=== PATIENT | female | born 1985 | race Caucasian/White ===

== ENCOUNTER 2016-09-13 21:33 | Emergency (ER) | payer OTHER ==
[~2016-09-13 21:33] MED LIST: DEPO-PROVE150 MG/11 IM; DOCUSATE SODIU100 M3 PO; HYDROMORPHONE HC2 M1 PO; IBUPROFEN800 M1 PO; IBUPROFEN800 MG PO; MOTRIN800 MG PO; NATURAL IRON65 MG PO; PERCOCET 325 MG1 TA2 PO; PERCOCET 5-3251 EACH PO; TOPIRAMATE25 MG PO; VITAFOL-ONE1 SGL PO; ZOFRAN4 M1 PO
--- NOTE | 2016-09-13 23:28 | ED MVC/FALL/TRAUMA COMPLAINT ---
History of Present Illness General Chief Complaint: Fall Stated Complaint: "BACK/HEAD PAIN S/P FALL DOWNSTAIRS -LOC" Source: patient, old records, friend Exam Limitations: no limitations Vital Signs & Intake/Output Vital Signs & Intake/Output Vital Signs Date Time Temp Pulse Resp B/P B/P Pulse O2 O2 Flow FiO2 Mean Ox Delivery Rate 09/13 2332 97.9 88 18 101/55 100 Room Air 09/13 2257 97.9 09/13 2146 97.9 88 18 114/71 98 Room Air Allergies Coded Allergies: NO KNOWN ALLERGIES (09/23/14) Reconcile Medications Docusate Sodium 100 MG CAPSULE 100 MG PO BID stool softener Hydromorphone HCl 2 MG TABLET 4 MG PO Q4 HRS NEEDED PRN PAIN SCALE 4-6 ( MODERATE) Ibuprofen 800 MG TABLET 800 MG PO Q6P PRN PAIN Oxycodone HCl/Acetaminophen (Percocet 5-325 MG Tablet) 1 EACH TABLET 1 TAB PO PRN PAIN (Reported) Oxycodone HCl/Acetaminophen (Percocet 5-325 MG Tablet) 5 MG-325 MG TABLET 1 TAB PO BID PRN pain Triage Note: TRIAGE; PT TO ED S/P LOST BALANCE AND FELL DOWN FLIGHT OF STAIRS PER PT. FRIEND WITH HER STATES SHE HAD +LOC. PT STATES SHE FEELS NAUSEOUS AT THIS TIME. C/O LT RIB PAIN AND HEAD PAIN. Triage Nurses Notes Reviewed? yes Onset: Abrupt Duration: hour(s): (2), constant Timing: recent history Severity: moderate Severity Numbers: 9 Injuries/Fall Location: head, chest Method of Injury: fall Loss of Consciousness: brief (seconds) No Modifying Factors: none Associated Symptoms: denies : No Patient currently breastfeeds: No HPI: 30 year old female presents to the ER for evaluation with her friend after she states she lost balance going up a flight of stairs. According to her friend she blacked out for a few seconds. On arrival she states she's been feeling nauseous associated generalized headache, and left-sided chest and neck pain. She did not take anything prior to arrival for her symptoms. Her friend denies change in her mental status. She denies vomiting she denies any upper or lower shimmy injury numbness or tingling. (OMAR RICHARDSON,OLIVER) Past History Travel History Traveled to [place] past 21 day No Medical History Any Pertinent Medical History? see below for history Neurological: migraine EENT: NONE Cardiovascular: syncope Respiratory: NONE Gastrointestinal: NONE Hepatic: NONE Renal: NONE Musculoskeletal: NONE Psychiatric: anxiety, POST DEPRESSION Endocrine: NONE Blood Disorders: anemia Cancer(s): NONE SCRAP COLLECTOR/Reproductive: NONE History of MRSA: No History of VRE: No History of CDIFF: No Surgical History Surgical History: , hysterectomy Psychosocial History Who do you live with Friend Services at Home None What is your primary language Welsh Tobacco Use: Never used Family History Hx Contributory? No (OLIVER PETTIT) Review of Systems Review of Systems Constitutional: Reports: see HPI. All Other Systems: Reviewed and Negative Comments Review of systems: See HPI, All other systems negative. Constitutional, no chills no fever, no malaise HEENT: No visual changes no sore throat no congestion Cardiovascular: No chest pain , no palpitation Skin: no rashes, no change in skin Respiratory: No dyspnea no cough no sputum GI: No nausea no vomiting, no diarrhea, : No dysuria No hematuria, no frequency, no discharge Muscle skeletal: No joint pain, no joint swelling, back pain, neck pain, Neurologic: No numbness no confusion, headache Psych: No stress Heme/endocrine: No bruising Immunology: No lymphadenopathy (OLIVER PETTIT) Physical Exam Physical Exam General Appearance: well developed/nourished, alert, awake Comments: Well-developed well-nourished person in no acute distress HEENT: Normal EENT exam; PERRL, EOMI, no nystagmus. HEAD is atraumatic. moist mucous membranes. Neck: Supple, no midline tenderness bilateral paracervical muscle tenderness to palpation normal range of motion without pain or tenderness Back: Nontender, no CVA tenderness. Full range of motion Cardiovascular: Regular rate and rhythms no murmurs rubs Respiratory: Chest nontender.no ecchymosis or signs of trauma There were no bony deformities, no asymmetry. No respiratory distress. Patient speaking in full complete sentences. Breath sounds clear to auscultation bilaterally: NO W/R/R Abdomen: Soft, nontender nondistended, no appreciable organomegaly. Normal bowel sounds. No rebound/guarding Extremity: No edema, full range of motion of extremities, normal and equal pulses bilaterally, 5 out of 5 strength noted to bilateral upper and lower extremities Neuro: Alert oriented x3, motor sensory normal, cranial nerves II through XII grossly intact. There were no obvious focal neurologic abnormalities. Skin: No appreciable rash on exposed skin, skin is warm and dry. Psych: Mood and affect is normal, memory and judgment is normal. Core Measures ACS in differential dx? No Severe Sepsis Present: No Septic Shock Present: No (OMAR RICHARDSON,OLIVER) Progress Differential Diagnosis: C/T/L spine injury, ext injury, ICH, pelvis injury, pnemothorax, spinal cord injury Plan of Care: Laboratory Tests 09/13/162158: Urine Test Cancelled Patient on phone appears in no apparent distress CAT scans ordered patient active morphine 4 mg IM Zofran ODT 09/14/2016 12:55:07 AM and repeat evaluation patient currently sleeping when awoken reports improvement in symptoms I discussed with the patient at length all of their results. I had an extensive conversation regarding need for close follow up with their primary care physician this week as well as return precautions. I answered all of their questions, they feel comfortable with the plan and follow-up care. I discussed the medications that they will receive with the patient. I gave them signs and symptoms that could indicate an adverse reaction. I have advised them to limit their activities until they can see how they respond to the medication. (OLIVER PETTIT) Diagnostic Imaging: Viewed by Me: CT Scan. Discussed w/RAD: CT Scan. Radiology Impression: PATIENT: GUERA BENNETT PRESENT AGE: 30 PATIENT ACCOUNT NO: [id number] : 84 LOCATION: [facility] ORDERING PHYSICIAN: OLIVER RICHARDSON SERVICE DATE: 09/13/16 EXAM TYPE: CAT - CT ABD & PELVIS W/O IV CONTRAS; CT CHEST WO IV CONTRAST EXAM: NONCONTRAST CT OF THE CHEST; NONCONTRAST CT OF THE ABDOMEN AND PELVIS INDICATION: Fall, pain , rule out left rib fracture COMPARISON: CT abdomen pelvis 12/16/2015 TECHNIQUE: No IV contrast was utilized. Multidetector helical imaging was performed through the chest, abdomen, and pelvis. Coronal and sagittal reformatted images were created at the technologist workstation. DLP: 355.64 mGy-cm FINDINGS: Chest: The lungs are clear bilaterally. No evidence of pneumothorax or pleural effusion. The visualized thyroid gland is grossly unremarkable. Irregular shaped soft tissue in the anterior mediastinum is favored to reflect residual thymus. No discrete mediastinal lymphadenopathy is seen, though assessment is suboptimal in the absence of intravenous contrast. Cardiac size is within normal limits; no pericardial effusion. No axillary lymphadenopathy is present. There is an essentially nondisplaced posterolateral left 10th rib fracture. Abdomen/Pelvis: The liver is homogeneous in attenuation without intrahepatic biliary ductal dilatation. The gallbladder is unremarkable. The unenhanced spleen, pancreas, and adrenal glands are within normal limits. The unenhanced kidneys are unremarkable without hydronephrosis. No renal or ureteral calculi are present. The urinary bladder is unremarkable. Patient is status post hysterectomy. There is nonspecific trace pelvic free fluid. The small and large bowel are unremarkable without evidence of obstruction or pericolonic inflammatory change. No free air is present. The unenhanced vascular structures are unremarkable. No lymphadenopathy is seen, though assessment is limited in the absence of intravenous contrast. There is anatomic alignment throughout the thoracolumbar spine. Vertebral body heights are maintained. Mild scattered degenerative endplate changes are noted. IMPRESSION: 1. Posterolateral left 10th rib fracture. 2. Trace nonspecific pelvic free fluid, which may be physiologic. DICTATED BY: DANA WRIGHT MD DATE/TIME DICTATED:09/14/1623 CASH MANAGER:AURA DATE/TIME TRANSCRIBED:09/14/1623 CONFIDENTIAL, DO NOT COPY WITHOUT APPROPRIATE AUTHORIZATION. <Electronically signed in Other Vendor System> SIGNED BY: DANA WRIGHT MD 09/14/16 0045, PATIENT: GUERA BENNETT PRESENT AGE: 30 PATIENT ACCOUNT NO: [id number] : 84 LOCATION: [facility] ORDERING PHYSICIAN: OLIVER RICHARDSON SERVICE DATE: 09/13/16 EXAM TYPE: CAT - CT CERV SPINE WO IV CONTRAST; CT HEAD WO IV CONTRAST EXAMINATION: NONCONTRAST HEAD CT NONCONTRAST CERVICAL SPINE CT INDICATION INFORMATION: Fall, struck head COMPARISON: Head CT 10/27/2013 TECHNIQUE: Separate noncontrast CT examinations of the head and cervical spine were performed. Coronal and sagittal images were created for each examination at the technologist workstation. DLP: 600.71, 355.88 mGy-cm FINDINGS: Head: There is no evidence of acute intracranial hemorrhage or territorial infarction. No abnormal mass-effect or midline shift is seen. Jeronimo to white matter differentiation is well preserved. No extra-axial fluid collections are identified. The ventricles are normal in size. There is no abnormal attenuation within the brain parenchyma. The osseous structures and soft tissues are normal. The mastoid air cells and visualized portions of the paranasal sinuses are well- aerated. Cervical spine: There is anatomic alignment of the vertebral bodies and posterior elements. Vertebral body heights and intervertebral disc spaces are maintained. No evidence of acute fracture. No prevertebral soft tissue swelling. There is partial opacification of the left maxillary sinus. Visualized portions of the lung apices are unremarkable. The thyroid gland is grossly unremarkable. IMPRESSION: No acute findings identified in the head or cervical spine. DICTATED BY: DANA WRIGHT MD DATE/TIME DICTATED:09/14/1616 CASH MANAGER: AURA DATE/TIME TRANSCRIBED:09/14/1616 CONFIDENTIAL, DO NOT COPY WITHOUT APPROPRIATE AUTHORIZATION. <Electronically signed in Other Vendor System> SIGNED BY: DANA WRIGHT MD 09/14/16 0027 (OLIVER PETTIT) Departure Departure Time of Disposition: 50 Disposition: HOME OR SELF CARE Condition: Stable Clinical Impression Primary Impression: Minor head injury Secondary Impressions: Fall, Rib fracture Referrals: LUIS ANTONIO BOSE APRN (PCP/Family) Additional Instructions: rest, ice tylenol or motrin for pain. Percocet for breakthrough pain USE cautioun as this is a narcotic highly addictive no driving or drinking alcohol while taking. Departure Forms: Customer Survey General Discharge Information Prescriptions: Current Visit Scripts Oxycodone HCl/Acetaminophen (Percocet 5-325 MG Tablet) 1 TAB PO BID PRN pain #10 TAB (OLIVER PETTIT) PA/MEDICAL ADVISOR Co-Sign Statement Statement: ED Attending supervision documentation- [] I saw and evaluated the patient. I have also reviewed all the pertinent lab results and diagnostic results. I agree with the findings and the plan of care as documented in the PA's/MEDICAL ADVISOR's documentation. [X] I have reviewed the ED Record and agree with the PA's/MEDICAL ADVISOR's documentation. [] Additions or exceptions (if any) to the PAs/MEDICAL ADVISOR's note and plan are summarized below: [] (DESEAN ARENAS,PAVAN)
[2016-09-13 23:32] VITALS: BP 101/55
--- NOTE | 2016-09-14 00:27 | CT SCAN REPORT ---
EXAMINATION: NONCONTRAST HEAD CT NONCONTRAST CERVICAL SPINE CT INDICATION INFORMATION: Fall, struck head COMPARISON: Head CT 10/27/2013 TECHNIQUE: Separate noncontrast CT examinations of the head and cervical spine were performed. Coronal and sagittal images were created for each examination at the technologist workstation. DLP: 600.71, 355.88 mGy-cm FINDINGS: Head: There is no evidence of acute intracranial hemorrhage or territorial infarction. No abnormal mass-effect or midline shift is seen. Jeronimo to white matter differentiation is well preserved. No extra-axial fluid collections are identified. The ventricles are normal in size. There is no abnormal attenuation within the brain parenchyma. The osseous structures and soft tissues are normal. The mastoid air cells and visualized portions of the paranasal sinuses are well-aerated. Cervical spine: There is anatomic alignment of the vertebral bodies and posterior elements. Vertebral body heights and intervertebral disc spaces are maintained. No evidence of acute fracture. No prevertebral soft tissue swelling. There is partial opacification of the left maxillary sinus. Visualized portions of the lung apices are unremarkable. The thyroid gland is grossly unremarkable. IMPRESSION: No acute findings identified in the head or cervical spine.
--- NOTE | 2016-09-14 00:45 | CT SCAN REPORT ---
EXAM: NONCONTRAST CT OF THE CHEST; NONCONTRAST CT OF THE ABDOMEN AND PELVIS INDICATION: Fall, pain, rule out left rib fracture COMPARISON: CT abdomen pelvis 12/16/2015 TECHNIQUE: No IV contrast was utilized. Multidetector helical imaging was performed through the chest, abdomen, and pelvis. Coronal and sagittal reformatted images were created at the technologist workstation. DLP: 355.64 mGy-cm FINDINGS: Chest: The lungs are clear bilaterally. No evidence of pneumothorax or pleural effusion. The visualized thyroid gland is grossly unremarkable. Irregular shaped soft tissue in the anterior mediastinum is favored to reflect residual thymus. No discrete mediastinal lymphadenopathy is seen, though assessment is suboptimal in the absence of intravenous contrast. Cardiac size is within normal limits; no pericardial effusion. No axillary lymphadenopathy is present. There is an essentially nondisplaced posterolateral left 10th rib fracture. Abdomen/Pelvis: The liver is homogeneous in attenuation without intrahepatic biliary ductal dilatation. The gallbladder is unremarkable. The unenhanced spleen, pancreas, and adrenal glands are within normal limits. The unenhanced kidneys are unremarkable without hydronephrosis. No renal or ureteral calculi are present. The urinary bladder is unremarkable. Patient is status post hysterectomy. There is nonspecific trace pelvic free fluid. The small and large bowel are unremarkable without evidence of obstruction or pericolonic inflammatory change. No free air is present. The unenhanced vascular structures are unremarkable. No lymphadenopathy is seen, though assessment is limited in the absence of intravenous contrast. There is anatomic alignment throughout the thoracolumbar spine. Vertebral body heights are maintained. Mild scattered degenerative endplate changes are noted. IMPRESSION: 1. Posterolateral left 10th rib fracture. 2. Trace nonspecific pelvic free fluid, which may be physiologic.
[2016-09-14] MEDS ORDERED: PERCOCET 5-3251 EACH PO (00:52)
== END 2016-09-14 01:00 ==
LOC: ERH 21:33
DX: S09.90XA Unspecified injury of head, initial encounter (principal); S22.32XA Fracture of one rib, left side, initial encounter for closed fracture; M54.2 Cervicalgia; R11.0 Nausea; W10.9XXA Fall (on) (from) unspecified stairs and steps, initial encounter; Y93.9 Activity, unspecified; Y92.9 Unspecified place or not applicable
CPT/HCPCS: 74176; 81025; 96372; J2405; J3101